=== PATIENT | female | born 1980 | race Caucasian/White ===

== ENCOUNTER 2024-04-10 11:58 | Emergency (ER) | payer BC, SELFPAY ==
[2024-04-10 11:59] VITALS: BP 132/78
--- NOTE | 2024-04-10 12:48 | ED.GENMED ---
History of Present Illness
General
Chief Complaint: Musculo-Skeletal Complaint
Source: patient
Time Seen by Provider: 04/10/24 12:32
History of Present Illness
History of Present Illness:
43-year-old female presenting to the emergency department for evaluation of left ankle pain/injury sustained while walking and twisted her ankle on a gravel surface. Patient noting significantly increased pain and swelling along the lateral aspect
of the ankle. Denies any previous history of injury or surgery to the affected left ankle. Did not take any medication for pain prior to arrival. No other injuries or concerns.
Past History
Past History
ED Past Medical History: GERD and Psychiatric
ED Past Surgical History: Orthopedic and Other
Social History
Tobacco: Non-smoker
Alcohol: None
Drug: None
Personal:
Living: with family
Review of Systems
Review of Systems
All Other Systems: ROS reviewed and negative except as documented in HPI and ROS
Phy Exam
Physical Exam
Physical Exam:
GENERAL: Alert , in no apparent distress
EYE: conjunctiva clear
Head: Normocephalic atraumatic
NECK: Supple,
ENT: mmm.
LUNGS: no acute respiratory distress
NEUROLOGICAL: Alert and oriented
SKIN: Warm and dry, skin intact.
MUSCULOSKELETAL: Left ankle: Moderate tenderness around the distal left lateral malleolus. No obvious deformity but there is soft tissue swelling. No breaks in the skin. No proximal tib-fib tenderness. No tenderness at the base of the fifth
metatarsal. Easily palpable pedal and tibial pulses. Cap refill less than 2 seconds. Sensation grossly intact to light touch.
PSYCH: Normal and appropriate interaction.
Scores
Heart Failure Risk
Heart Failure Risk Score: Not Applicable
Heart Score for Chest Pain Patients
STEMI patient?: Not applicable
Withdrawal Assessment of Alcohol
Withdrawal Assessment Completed?: Not applicable
Course
Orders/Labs/Results
Orders:
Orders
04/10/24 12:04
CR Ankle - Left Min 3 Views Urgent
Comment:
Reason For Exam: fall
04/10/24 12:48
Crutches-Treatment ONCE
Ortho Boot Left- Treatment ONCE
Short or tall?: Tall
Vital Signs
Initial and Last Documented VS:
Initial Vital Signs
Temp Pulse Resp BP Pulse Ox
98.1 F 72 18 132/78 98
04/10/24 11:59 04/10/24 11:59 04/10/24 11:59 04/10/24 11:59 04/10/24 11:59
Last Documented Vital Signs
Temp Pulse Resp BP Pulse Ox
98.1 F 72 18 132/78 98
04/10/24 11:59 04/10/24 11:59 04/10/24 11:59 04/10/24 11:59 04/10/24 11:59
MDM/Problems Addressed
Differential Diagnosis Includes:
Sprain, fracture, contusion
MDM/Problems Addressed:
43-year-old female presenting to the emergency department for evaluation of left ankle injury sustained an accidental trip and fall. X-ray was ordered from triage and shows a nondisplaced distal lateral malleolus for. Patient currently working as
a camp counselor but resides in [place] and will be returning home on April 21. Provide patient with information for Lalit at follow-up here as she is still going to be residing in this area for the next 2 weeks. Patient requesting a boot as well
as crutches. Advised NSAIDs/Tylenol as needed for pain. Patient thinks something little stronger to be used as needed so a prescription for Percocet was sent to patient's pharmacy. Stable for discharge home and aware of return precautions.
*Radiology
Radiology exam reviewed: preliminary read by ED provider (Lateral malleolus fracture)
*Pulse Oximetry
Patient hypoxic: no
*Critical Care Note
Total Time (30-74mins, 75-104mins- exclusive of procedures): Not Applicable
Patient Management
Escalation/DeEscalation of care consider admission/obs:
Patient was having a difficult time tolerating orthopedic boot so a short leg posterior splint was made for immobilization. Patient was still requesting to go home with the orthopedic boot. Patient was advised on splint care. Continue close
follow-up with orthopedics as an outpatient
ED Attending Note
-
Portions of this chart may have been created with voice recognition software.� Occasional wrong word or��sound alike� substitutions may have occurred due to the inherent limitations of voice recognition software.
Discharge Plan
Departure
Patient Disposition: Home (Routine Discharge)
Date of Disposition: 04/10/24
Time of Disposition: 12:49
Patient with high blood pressure during this ER visit?: No
Discharge Problem:
Closed fracture of distal end of left fibula
Instructions: Ankle Fracture (DC)
Prescriptions:
New
oxycodone-acetaminophen [Percocet] 5-325 mg tablet
1 tab PO Q6HPRN PRN (Reason: pain) Qty: 6 0RF
Referrals:
Dwight Hartman MD [Active] - (Orthopedics - Call for appointment)
NONE,* [Family Provider] -
Interventions
Interventions:
*General Assessment Last Done: 04/10/24 11:59
Discharge Date and Time
Print Language: MAORI
[2024-04-10] MEDS: ZOFRAN ODT (ORALLY DISINTEGRATING) 4 MG PO (14:40)
[2024-04-10] MEDS: PERCOCET 5/325 1 TABLET PO (14:40)
[2024-04-10 14:51] VITALS: BP 141/78
== END 2024-04-10 14:51 | disposition home or self-care (01) ==
LOC: EMR 11:58
PROVIDERS: EMERGENCY PHYSICIAN Emergency Medicine
DX: S82.832A Other fracture of upper and lower end of left fibula, initial encounter for closed fracture (principal); X50.1XXA Overexertion from prolonged static or awkward postures, initial encounter; Y93.01 Activity, walking, marching and hiking; Y92.89 Other specified places as the place of occurrence of the external cause; Y99.0 Civilian activity done for income or pay; K21.9 Gastro-esophageal reflux disease without esophagitis; Z88.8 Allergy status to other drugs, medicaments and biological substances
CPT/HCPCS: 99283; 29515; 73610

== ENCOUNTER 2024-04-14 17:04 | Emergency (ER) | payer BC, SELFPAY ==
[2024-04-14 17:18] VITALS: BP 133/65
--- NOTE | 2024-04-14 18:34 | ED.GENMED ---
History of Present Illness
General
Chief Complaint: Musculo-Skeletal Complaint
Source: patient and records
Exam Limitations: none
Time Seen by Provider: 04/14/24 17:43
Nursing documentation reviewed up to this point in time: agreed with
History of Present Illness
History of Present Illness:
43-year-old female presents with numbness tingling of her toes, second fall a week or so ago had a fibular fracture followed up with orthopedics today had a cast placed few hours later felt pain tingling has an appointment tomorrow the office is
closed sent here for removal of the cast
Past History
Past History
ED Past Medical History: GERD and Psychiatric
ED Past Surgical History: Orthopedic and Other
Social History
Tobacco: Non-smoker
Alcohol: None
Drug: None
Personal:
Living: with family
Review of Systems
Review of Systems
All Other Systems: Not applicable
Musculoskeletal: Reports joint pain
Neurological: Reports numbness
Phy Exam
Physical Exam
Physical Exam:
Physical Exam
General: no apparent distress, not acutely ill
Neck: No jaundice
Heart: s1/s2 regular rate and rhythm, no murmur. equal radial pulses.
Lungs: no acute respiratory distress. clear bilaterally
Neuro: alert and oriented. no focal neurological deficits
Skin: no rash
Psychiatric: well kept. interactive and cooperative
Extremities: Cast on the left lower extremity and is below the knee toes are pink
Course
Vital Signs
Initial and Last Documented VS:
Initial Vital Signs
Temp Pulse Resp BP Pulse Ox
98.3 F 84 16 133/65 97
04/14/24 17:18 04/14/24 17:18 04/14/24 17:18 04/14/24 17:18 04/14/24 17:18
Last Documented Vital Signs
Temp Pulse Resp BP Pulse Ox
98.3 F 84 16 133/65 97
04/14/24 17:18 04/14/24 17:18 04/14/24 17:18 04/14/24 17:18 04/14/24 17:18
Procedures
Other
Indication for procedure:: Tight cast
Procedure completed by: [facility] PA nursing
Consent form signed: No
Additional Procedure:
Norris, bivalved loosened gently approximated with [place] wrap
MDM/Problems Addressed
Differential Diagnosis Includes:
Cast too tight, doubt DVT, unclear if it is compartment syndrome but unlikely at this point we will proceed with bivalve have her follow-up as scheduled tomorrow
*Critical Care Note
Total Time (30-74mins, 75-104mins- exclusive of procedures): Not Applicable
Update Note
Update Note:
Update patient feeling better after loosening of the cast
ED Attending Note
-
Portions of this chart may have been created with voice recognition software.� Occasional wrong word or��sound alike� substitutions may have occurred due to the inherent limitations of voice recognition software.
Discharge Plan
Departure
Patient Disposition: Home (Routine Discharge)
Date of Disposition: 04/14/24
Time of Disposition: 18:36
Patient with high blood pressure during this ER visit?: No
Condition: Good
Discharge Problem:
Cast discomfort
Instructions: Cast Care
Prescriptions:
No Action
oxycodone-acetaminophen [Percocet] 5-325 mg tablet
1 tab PO Q6HPRN PRN (Reason: pain) Qty: 6 0RF
Referrals:
NONE,* [Family Provider] -
Activity Restrictions/Additional Instructions:
Follow-up with your orthopedist tomorrow
Interventions
Interventions:
*Risk Screen - Suicide Last Done: 04/14/24 18:09
*General Assessment Last Done: 04/14/24 17:18
*Neglect/Abuse Screening Last Done: 04/14/24 18:09
ED- Fall Risk Assessment Last Done: 04/14/24 18:11
*ED COVID-19 Vaccine History Last Done: 04/14/24 17:18
*Nursing Disposition Last Done: 04/14/24 18:53
ED-Musculoskeletal Assessment Last Done: 04/14/24 18:10
Discharge Date and Time
Discharge Date/Time: 04/14/24 18:53
Print Language: BELARUSIAN
== END 2024-04-14 18:53 | disposition home or self-care (01) ==
LOC: EMR 17:04
PROVIDERS: EMERGENCY PHYSICIAN Emergency Medicine
DX: R20.0 Anesthesia of skin (principal); R20.2 Paresthesia of skin; M25.572 Pain in left ankle and joints of left foot; Z91.81 History of falling; Z88.8 Allergy status to other drugs, medicaments and biological substances
CPT/HCPCS: 99281